=== PATIENT | female | born 1955 | race Caucasian/White ===

== ENCOUNTER 2016-11-13 19:58 | Inpatient (IN) | payer MEDICARE, OTHER ==
[2016-11-13] MEDS ORDERED: IPRATROPIUM/ALBUTEROL 3 ML NEB INH STA (20:23)
[2016-11-13] MEDS ORDERED: predniSONE 20 MG TABLET PO STA (20:24)
--- NOTE | 2016-11-13 20:24 | ED Physician Documentation ---
PD HPI URI - Stated complaint Stated Complaint: SOA - Chief complaint Chief Complaint: Resp - History obtained from History obtained from: Patient, Family - History of Present Illness Timing - onset: How many days ago (4) Timing duration: Days (4) Timing details: Gradual onset Pain level max: 0 Pain level now: 0 Associated symptoms: Chills, Sweats, Rhinorrhea, Dry cough, Dyspnea. No: Fever , Hemoptysis, Chest pain Contributing factors: Sick contact, COPD / asthma Improves by: Rest Worsened by: Activity, Breathing Similar symptoms before: Diagnosis (viral URI) Recently seen: Clinic (PCP and given inhaler, not helping per pt) Review of Systems Ten Systems: 10 systems reviewed and negative Eyes: denies: Photophobia Nose: reports: Rhinorrhea / runny nose, Congestion Respiratory: reports: Cough, Wheezing GI: denies: Nausea, Vomiting PD PAST MEDICAL HISTORY - Past Medical History Past Medical History: Yes Cardiovascular: Hypertension Endocrine/Autoimmune: Type 2 diabetes - Present Medications Home Medications: Ambulatory Orders Medication Instructions Recorded Confirmed Albuterol Sulf [Ventolin Hfa 2 puffs IN Q4HR 11/13/16 11/13/16 Inhaler] Allopurinol [Zyloprim] 300 mg ORAL DAILY 11/13/16 11/13/16 Furosemide 80 mg ORAL DAILY 11/13/16 11/13/16 Hydrocodone/Acetaminophen [[place] 1 tab ORAL PRN PRN 11/13/16 11/13/16 5-325 Tablet] Insulin Glargine,Hum.rec.anlog 0 unit SQ BID 11/13/16 11/13/16 [Lantus Solostar] Lisinopril [Zestril] 40 mg ORAL DAILY 11/13/16 11/13/16 Metoclopramide [Reglan] 10 mg ORAL BID 11/13/16 11/13/16 Omeprazole 40 mg ORAL DAILY 11/13/16 11/13/16 Pioglitazone [Actos] 30 mg ORAL DAILY 11/13/16 11/13/16 Simvastatin 20 mg ORAL DAILY 11/13/16 11/13/16 amLODIPine [Norvasc] 10 mg ORAL BID 11/13/16 11/13/16 metFORMIN [Glucophage] 500 mg ORAL BID 11/13/16 11/13/16 - Allergies Allergies/Adverse Reactions: Allergies Allergy/AdvReac Type Severity Reaction Status Date / Time No Known Drug Allergies Allergy Verified 11/13/16 20:15 - Living Situation Living Situation: reports: With family Living Arrangement: reports: At home - Social History Does the pt smoke?: Yes Smoking Status: Former smoker Does the pt have substance abuse?: No PD ED PE NORMAL - Vitals Vital signs reviewed: Yes - General General: Alert and oriented X 3, No acute distress - HEENT HEENT: PERRL, Ears normal, Moist mucous membranes, Pharynx benign - Neck Neck: Supple, no meningeal sign - Cardiac Cardiac: RRR - Respiratory Respiratory: No respiratory distress, Other (decreased BS bilaterally. mild wheezing) - Abdomen Abdomen: Soft, Non tender - Derm Derm: Warm and dry - Extremities Extremities: No calf tenderness / cord - Neuro Neuro: Alert and oriented X 3 - Psych Psych: Normal mood, Normal affect Results - Vitals Vitals: Vital Signs - 24 hr 11/13/16 11/13/16 11/13/16 20:11 20:30 21:18 Temperature 36.9 C Heart Rate 113 H 112 H 112 H Respiratory 24 22 24 Rate Blood Pressure 121/65 137/56 H O2 Saturation 86 L 93 11/13/16 22:15 Temperature Heart Rate 109 H Respiratory 22 Rate Blood Pressure O2 Saturation Oxygen O2 Source Nasal cannula Oxygen Flow Rate 2 - EKG (time done) 2044 Rate: Rate (enter#) (110) Rhythm: Sinus tachycardia, Other (PAC) [place]: Normal Intervals: Normal VA QRS: Normal Ischemia: Normal ST segments - Labs Labs: Laboratory Tests 11/13/16 11/13/16 20:35 20:35 WBC 13.2 H RBC 3.77 L Hgb 11.1 L Hct 34.5 L MCV 91.5 MCH 29.3 MCHC 32.0 RDW 15.5 H Plt Count 355 MPV 8.2 Neut # Not Reportable Lymph # Not Reportable [place] # Not Reportable Eos # Not Reportable Baso # Not Reportable Absolute Nucleated RBC Not Reportable Total Counted 100 Band Neuts % (Manual) 21 H Neutrophils # (Manual) 9.9 H Lymphocytes # (Manual) 1.5 Monocytes # (Manual) 1.7 H Basophils # (Manual) 0.1 Nucleated RBCs Not Reportable Differential Comment MANUAL DIFFERENTIAL Platelet Estimate NORMAL (130-450,000) Platelet Morphology NORMAL APPEARANCE RBC Morph Micro Appear NORMAL APPEARANCE Sodium 135 Potassium 4.0 Chloride 96 L Carbon Dioxide 28 Anion Gap 11.0 BUN 26 H Creatinine 1.6 H Estimated GFR (MDRD) 33 L Glucose 201 H Calcium 9.4 Total Bilirubin 0.5 AST 23 ALT 18 Alkaline Phosphatase 75 Total Protein 8.1 Albumin 3.5 Globulin 4.6 H Albumin/Globulin Ratio 0.8 L Lipase 21 L - Rads (name of study) cxr Radiology: Prelim report reviewed, EMP read contemporaneously, See rad report ( Mild vascular and interstitial prominence. Very mild asymmetric possible atelectasis or infiltrate within the left mid to upper lung although substantially less opacity than on the comparison exam from 2007. ) PD MEDICAL DECISION MAKING - ED course Complexity details: reviewed results, re-evaluated patient, considered differential, d/w patient, d/w family ED course: Patient is a 61-year-old female with what appears to be a viral upper respiratory infection causing worsening of what is likely COPD from her years of smoking. She was given steroids and multiple nebulizer treatments here. Is continuing to require supplemental oxygen. No evidence of pneumonia on chest x- ray. We will continue supportive care and admit her for supplemental oxygen and further treatment. Discussed the case with Dr. Mena, hospitalist who accepts. This document was made in part using voice recognition software. While efforts are made to proofread this document, sound alike and grammatical errors may occur. Departure - Departure Disposition: 64 [facility] DC/Xfer Clinical Impression: Hypoxia Upper respiratory tract infection Qualifiers: URI type: unspecified viral URI Qualified Code(s): J06.9 - Acute upper respiratory infection, unspecified Condition: Good
[2016-11-13] MEDS ORDERED: IPRATROPIUM/ALBUTEROL 3 ML NEB INH ONE (20:30)
[2016-11-13 20:41] LABS: BASOPHILS % (AUTO) 1.1 %; EOSINOPHILS % (AUTO) 0.3 %; HCT - HEMATOCRIT 34.5 % (37.0-47.0); HGB - HEMOGLOBIN 11.1 g/dL (12.0-16.0); LYMPHOCYTES % (AUTO) 10.4 %; MEAN CORPUSCULAR HEMOGLOBIN 29.3 pg (27.0-31.0); MEAN CORPUSCULAR VOLUME 91.5 fL (81.0-99.0); MEAN PLATELET VOLUME 8.2 fL (7.9-10.8); MONOCYTES % (AUTO) 14.4 %; NEUTROPHILS % (AUTO) 73.8 %; RED BLOOD COUNT 3.77 10^6/uL (4.20-5.40); RED CELL DISTRIBUTION WIDTH 15.5 % (12.0-15.0); UNCORRECTED WHITE BLOOD COUNT 13.2 x10^3/uL; WHITE BLOOD COUNT 13.2 x10^3/uL (4.8-10.8)
[2016-11-13 20:54] LABS: ALBUMIN/GLOBULIN RATIO 0.8 (1.0-2.2); BILIRUBIN,TOTAL 0.5 mg/dL (0.2-1.0); CALCIUM 9.4 mg/dL (8.5-10.3); CREATININE 1.6 mg/dL (0.4-1.0); TOTAL PROTEIN 8.1 g/dL (6.7-8.2)
[2016-11-13 21:01] LABS: BAND NEUTROPHILS % (MANUAL) 21 %; BASOPHILS % (MANUAL) 1 %; LYMPHOCYTES % (MANUAL) 11 %; NEUTROPHILS % (MANUAL) 54 %; TOTAL CELLS COUNTED 100
[2016-11-13 21:03] LABS: NP AUTO DIFFERENTIAL? YES; NP MAN DIFFERENTIAL? NO; PLATELET ESTIMATE, MANUAL NORMAL (130-450,000) (NORMAL); PLATELET MORPHOLOGY NORMAL APPEARANCE (NORMAL)
[2016-11-13] MEDS ORDERED: predniSONE 20 MG TABLET ONE (21:09)
[2016-11-13] MEDS ORDERED: ALBUTEROL NEB 2.5 MG/3 ML INH STA (21:45)
--- NOTE | 2016-11-13 21:50 | XRAY Preliminary Report ---
Exam: XR Chest 1 View IMPRESSION: 1. Mild vascular and interstitial prominence. 2. Very mild asymmetric possible atelectasis or infiltrate within the left mid to upper lung although substantially less opacity than on the comparison exam from 2007. [facility] SITE ID: [id number]
--- NOTE | 2016-11-13 21:53 | XRAY Report ---
EXAM: CHEST RADIOGRAPHY EXAM DATE: 11/13/2016 09:30 PM. CLINICAL HISTORY: Dyspnea. COMPARISON: 2 views 01/29/2007. TECHNIQUE: 1 view. FINDINGS: Lungs/Pleura: Mild diffuse vascular prominence and mild bilateral increased interstitial markings. Po ssible mild asymmetric atelectasis or infiltrate within the left mid to upper lung but substantially less than demonstrated on the prior exam. No definite pulmonary infiltrates or pleural effusion. Mediastinum: Within exam limitations, cardiomediastinal contour is normal. Other: None. IMPRESSION: 1. Mild vascular and interstitial prominence. 2. Very mild asymmetric possible atelectasis or infiltrate within the left mid to upper lung although substantially less opacity than on the comparison exam from 2006. [facility] Referring Provider Line: [phone] SITE ID: [id number]
[2016-11-13] MEDS ORDERED: ALBUTEROL NEB 2.5 MG/3 ML INH ONE (22:19)
[2016-11-13] MEDS ORDERED: HYDROcod/ACETAM 10 MG/325 MG TABLET PO PRN (23:13)
[2016-11-13] MEDS ORDERED: PROCHLORPERAZINE 10 MG/2 ML VIAL IVP PRN (23:13)
[2016-11-13] MEDS ORDERED: ONDANSETRON 4 MG/2 ML VIAL IVP PRN (23:13)
[2016-11-13] MEDS ORDERED: ZOLPIDEM 5 MG TABLET PO PRN (23:13)
[2016-11-13] MEDS ORDERED: MORPHINE 2 MG/ML SYRINGE IVP PRN (23:13)
[2016-11-13] MEDS ORDERED: ACETAMINOPHEN 325 MG TABLET PO PRN (23:13)
[2016-11-13] MEDS ORDERED: HYDROcod/ACETAM 5/325 MG TABLET PO PRN (23:13)
[2016-11-13] MEDS ORDERED: SODIUM CHLORIDE FLUSH 0.9% 10 ML SYRINGE IVP PRN (23:13)
[2016-11-13] MEDS: IPRATROPIUM/ALBUTEROL 3 ML NEB INH SCH (23:45)
[2016-11-14] MEDS ORDERED: CARBOXYMETHYLCELLULOSE OPHTH DROPS EACHEYE PRN ×2 (02:40→05:09)
--- NOTE | 2016-11-14 05:32 | HISTORY & PHYSICAL EXAMINATION ---
Chief Complaint - Chief Complaint Chief Complaint: Shortness of air History of Present Illness - Admitted From Admitted From:: Emergency Department - History Obtained From Records Reviewed: Yes History obtained from: Patient Exam Limitations: None - History of Present Illness HPI Comment/Other: Patient is a 61-year-old female with a past medical history of obesity, hypertension, hyperlipidemia, diabetes, ovarian cancer in remission since 2012 and COPD who presented to the emergency department with a chief complaint of shortness of air. Patient states her symptoms started about 5 days ago she states initially she was having a cough that was dry with shortness of air. She states that initially his shortness of air was only with large amounts of exertion. She states that the symptoms progressed over the last 5 days to a point where today she became short of air with just 10 feet of ambulation. She states that the cough continues to worsen and she also states that she his having upper respiratory symptoms including sore throat and nasal congestion. The patient states that she was around her grandson who was sick just one week earlier. She states that her also became ill with upper respiratory infection but his symptoms were mostly in the throat. The patient recently saw her primary care physician and was prescribed an inhaler she has been taking the inhaler at home despite taking it every 4 hours she states the symptoms were not getting better. On presentation to the emergency department the patient was hypoxemic down to 87 % on room air, she was tachypneic and appeared to be in mild respiratory distress. The patient received 3 breathing treatments and IV steroids in the emergency department and continued to be hypoxemic on room air. The patient's chest x-ray did reveal pneumonia. The patient was tachycardic and had a leukocytosis of 13,000. She was admitted to the hospital for COPD exacerbation and community acquired pneumonia. Review of Systems - Constitutional Constitutional: reports: Fatigue. denies: Fever, Chills, Malaise, Weakness, Poor appetite, Night sweats, Weight loss - Eyes Eyes: denies: Pain, Irritation, Amaurosis, Blurred vision, Spots in vision, Field loss, Vision loss, Dipolpia - Ears, Nose & Throat Ears, Nose & Throat: reports: Nasal congestion, Sore throat. denies: Ear pain, Hearing loss, Hearing aids, Tinnitus, Vertigo, Nasal pain, Nasal discharge, Nosebleeds, Nasal obstruction, Postnasal drainage, Dentures, Hoarseness, Mouth lesions, Bleeding gums - Cardiovascular Cariovascular: reports: Exertional dyspnea, Decr. exercise tolerance. denies: Irregular heart rate, Palpitations, Chest pain, Edema, Lightheadedness, Syncope , Orthopnea - Respiratory Respiratory: reports: Cough, SOB with exertion. denies: Sputum production, Wheezing, Snoring, Hemoptysis, Orthopnea, Apnea - Gastrointestinal Gastrointestinal: denies: Abdominal pain, Abdominal distention, Constipation, Diarrhea, Change in bowel habits, Rectal bleeding, Black stools, Bloody stools, Nausea, Vomiting, Coffee grounds emesis - Genitourinary Genitourinary: denies: Dysuria, Frequency, Urgency, Hematuria - Musculoskeletal Musculoskeletal: denies: Muscle pain, Back pain, Muscle aches, Stiffness, Limited range of motion, Muscle weakness, Joint pain, Joint swelling - Integumentary Integumentary: denies: Rash, Pruritis, Lesions, Dryness - Neurological Neurological: denies: General weakness, Focal weakness, Headache, Dizziness, Numbness, Memory problems - Psychiatric Psychiatric: denies: Depression, Anxiety - Endocrine Endocrine: denies: Polyuria, Polydypsia, Polyphagia, Intolerance to cold - Hematologic/Lymphatic Hematologic/Lymphatic: denies: Anemia, Bruising, Petechiae History - Past Medical History Cardiovascular: reports: Hypertension, High cholesterol Respiratory: reports: COPD Neuro: reports: None Endocrine/Autoimmune: reports: Type 2 diabetes GI: reports: Other (Obesity) [employer]: reports: 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 : reports: None HEENT: reports: None Psych: reports: None Musculoskeletal: reports: Osteoarthritis Derm: reports: None MRSA Hx?: No Other Past Medical History: Gastroparesis - Past Surgical History /[employer]: reports: Hysterectomy HEENT: reports: Other - Family & Social History Family History: Father: Diabetes, Type 2 Family History Comment/Other: Mother had Alzheimer's Living arrangement: At home Living Situation: With spouse/s.o. Social History Notes: Lived in [place] since first grade, born in [place]. Father was in the . She is retired. Has one child. - Substance History Use: Uses substance without health or social issues: Tobacco (Quit 10 years ago smoked 3 PPD for more than 20 years) - POLST Patient has POLST: No POLST Status: Full Code Meds/Allgy - Home Medications Home Medications: Ambulatory Orders Medication Instructions Recorded Confirmed Albuterol Sulf [Ventolin Hfa 2 puffs IN Q4HR 11/13/16 11/13/16 Inhaler] Allopurinol [Zyloprim] 300 mg ORAL DAILY 11/13/16 11/13/16 Furosemide 80 mg ORAL DAILY 11/13/16 11/13/16 Hydrocodone/Acetaminophen [[place] 1 tab ORAL PRN PRN 11/13/16 11/13/16 5-325 Tablet] Insulin Glargine,Hum.rec.anlog 0 unit SQ BID 11/13/16 11/13/16 [Lantus Solostar] Lisinopril [Zestril] 40 mg ORAL DAILY 11/13/16 11/13/16 Metoclopramide [Reglan] 10 mg ORAL BID 11/13/16 11/13/16 Omeprazole 40 mg ORAL DAILY 11/13/16 11/13/16 Pioglitazone [Actos] 30 mg ORAL DAILY 11/13/16 11/13/16 Simvastatin 20 mg ORAL DAILY 11/13/16 11/13/16 amLODIPine [Norvasc] 10 mg ORAL BID 11/13/16 11/13/16 metFORMIN [Glucophage] 500 mg ORAL BID 11/13/16 11/13/16 - Allergies Allergies/Adverse Reactions: Allergies Allergy/AdvReac Type Severity Reaction Status Date / Time No Known Drug Allergies Allergy Verified 11/13/16 20:15 Exam - Vital Signs Vital Signs: Vital Signs x48h Temp Pulse Resp BP Pulse Ox 11/14/16 01:24 114 H 94 11/14/16 01:15 94 11/14/16 00:47 36.9 C 119 H 20 155/79 H 94 - Physical Exam General Appearance: positive: Alert, Mild distress (Coughing with shortness of air) Eyes Bilateral: positive: Normal inspection, PERRL, EOMI, No lid inflammation, Conjunctivae nml, No scleral icterus ENT: positive: ENT inspection nml, No signs of dehydration, Pharyngeal erythema. negative: Purulent nasal drainage, Oral lesions Neck: positive: Nml inspection, Thyroid nml, No JVD, Trachea midline. negative : Thyromegaly, Lymphadenopathy (R), Lymphadenopathy (L) Respiratory: positive: Chest non-tender, Wheezes (scattered), Rhonchi (bilateral , coarse sounding lungs) Cardiovascular: positive: No murmur, No gallop, Tachycardia Peripheral Pulses: positive: 2+ Abdomen: positive: Non-tender, No organomegaly, Nml bowel sounds, No distention. negative: Tenderness, Guarding, Rebound Back: positive: Nml inspection Skin: positive: Color nml, No rash, Warm Extremities: positive: Non-tender, Full ROM, Nml appearance, No pedal edema Neurologic/Psychiatric: positive: Oriented x3, CN's nml (2-12), Motor nml, Sensation nml, Mood/affect nml Conclusion/Plan - Problem List (1) CAP (community acquired pneumonia) Conclusion/Plan: Patient presented with shortness of air and cough worsening over last 5 days with no improvement despite taking nebs every 4 hours at home On presentation patient was hypoxic, tachypnic and tachycardic WBC elevated at 13K CXR showed left mid to upper lung pneumonia Patient also wheezing and appears to also have COPD exacerbation Plan: Treat for CAP with ceftriaxone and Azithromycin Supplemental O2 Treat COPD exacerbation (2) COPD exacerbation Conclusion/Plan: History of smoking 3PPD for over 20 years No previous diagnosis of COPD but was prescribed inhalers by her PCP earlier this week Not improving despite q4 treatments at home Hypoxic on presentation with pneumonia and wheezing Appears to have COPD exacerbation Plan: Duonebs ATC and prn IV steroids TID Supplemental O2 Will need outpatient PFTs and possibly needs ICS and LABA (3) Diabetes Conclusion/Plan: Blood sugar poorly controlled on presentation Likely secondary to infection Will be getting steroids therefore will need additional coverage Plan: Hb A1C Lantus 40 BID Novolog 25 units TIDWM SS insulin moderate scale Diabetic diet (4) Hypertension Conclusion/Plan: BP well controlled Will continue home meds Monitor (5) Hyperlipidemia Conclusion/Plan: Continue statin Stable - Lab Results Fish Bones: 11/13/16 20:35 11/13/16 20:35 - Diagnostic Imaging Results Diagnostic Imaging Results: positive: Final report reviewed Diagnostic Imaging Results Comments: CXR- pneumonia left mid to upper lung - EKG Results EKG Interpreted Independently: Yes Issues/Core Measures - Anticipated LOS Anticipated Stay Length: 2 or more midnights
[2016-11-14 06:21] LABS: BASOPHILS % (AUTO) 0.3 %; HCT - HEMATOCRIT 33.5 % (37.0-47.0); HGB - HEMOGLOBIN 10.8 g/dL (12.0-16.0); LYMPHOCYTES # (AUTO) 0.5 10^3/uL (1.5-3.5); LYMPHOCYTES % (AUTO) 5.4 %; MEAN CORPUSCULAR HEMOGLOBIN 29.7 pg (27.0-31.0); MEAN CORPUSCULAR HGB CONC 32.3 g/dL (32.0-36.0); MEAN CORPUSCULAR VOLUME 92.1 fL (81.0-99.0); MEAN PLATELET VOLUME 8.2 fL (7.9-10.8); MONOCYTES # (AUTO) 0.6 10^3/uL (0.0-1.0); MONOCYTES % (AUTO) 5.6 %; NEUTROPHILS # (AUTO) 8.9 10^3/uL (1.5-6.6); NEUTROPHILS % (AUTO) 88.7 %; RED BLOOD COUNT 3.64 10^6/uL (4.20-5.40); RED CELL DISTRIBUTION WIDTH 15.6 % (12.0-15.0); UNCORRECTED WHITE BLOOD COUNT 10.1 x10^3/uL; WHITE BLOOD COUNT 10.1 x10^3/uL (4.8-10.8)
[2016-11-14 06:30] LABS: CALCIUM 9.2 mg/dL (8.5-10.3); CREATININE 1.7 mg/dL (0.4-1.0); POTASSIUM 5.2 mmol/L (3.5-5.0)
[2016-11-14] MEDS: methylPREDNISolone SUCCINATE 40 MG/ML VIAL IVP SCH ×3 (06:36→21:35)
[2016-11-14] MEDS: SODIUM CHLORIDE 0.9% 1,000 ML IV SCH ×2 (06:36→14:20)
[2016-11-14] MEDS: SODIUM CHLORIDE FLUSH 0.9% 10 ML SYRINGE IVP SCH ×3 (06:37→21:35)
[2016-11-14] MEDS: PANTOPRAZOLE 40 MG TABLET PO SCH (06:37)
[2016-11-14 07:33] LABS: HEMOGLOBIN A1C 0.66 g/dL
[2016-11-14] MEDS ORDERED: INSULIN ASPART 300 UNIT/3 ML PEN SUBQ SCH ×2 (08:00→17:00)
[2016-11-14] MEDS ORDERED: INSULIN GLARGINE 300 UNIT/3 ML PEN SUBQ SCH ×3 (08:00→21:00)
[2016-11-14] MEDS: INSULIN ASPART 300 UNIT/3 ML PEN SUBQ SCH ×6 (08:15→21:39)
[2016-11-14] MEDS: cefTRIAXone 2 GM in SODIUM CHLORIDE 0.9% MINIBAG 100 ML IV SCH (08:18)
[2016-11-14] MEDS: POLYETHYLENE GLYCOL 3350 17 GM PACKET PO SCH (08:20)
[2016-11-14] MEDS: AZITHROMYCIN INJ 500 MG in SODIUM CHLORIDE 0.9% 250 ML IV SCH (08:20)
[2016-11-14] MEDS: ENOXAPARIN 30 MG/0.3 ML SYRINGE SUBQ SCH (08:21)
[2016-11-14] MEDS ORDERED: ALLOPURINOL 100 MG TABLET PO SCH (09:00)
[2016-11-14] MEDS ORDERED: amLODIPine 5 MG TABLET PO SCH (09:00)
[2016-11-14] MEDS: IPRATROPIUM/ALBUTEROL 3 ML NEB INH SCH ×4 (10:40→19:00)
--- NOTE | 2016-11-14 12:06 | PROVIDER PROGRESS NOTE ---
Subjective - Prog Note Date Prog Note Date: 11/14/16 Prog Note Time: 15:55 - Subjective Subjective: tthis 61-year-old female was admitted yesterday with hypoxic respiratory failure, due to pneumonia and COPD exacerbation. she was admitted,, and started on IV Rocephin and Zithromax, a, Solu-Medrol, DuoNeb's. On exam today, she is quite somnolent,, and somewhat difficult to arouse, although she does eventually awaken. She reports she continues to have mild cough and mild dyspnea with exertion , which is minimally productive. Otherwise , she denies subjective fever or chills, headaches or dizziness, sore throat, lymphadenopathy,, chest pain or palpitations, abdominal pain, nausea or vomiting , diarrhea or constipation, dysuria. Objective - Vital Signs/Intake & Output Vital Signs: Vital Signs x48h Temp Pulse Pulse Resp BP Pulse Ox 11/14/16 10:40 112 H 20 11/14/16 07:19 37.0 C 108 H 18 153/78 H 92 11/14/16 06:42 109 H 94 11/14/16 05:32 36.6 C 110 H 20 147/78 H 93 Intake & Output: Intake & Output 11/11/16 11/12/16 11/13/16 11/14/16 23:59 23:59 23:59 23:59 Intake Total 450 Balance 450 on exam, she is an overweight white female,, who is difficult to arouse,, but then became alert and oriented. She is in no acute distress. Neck: Appears supple without obvious lymphadenopathy. Cardiac exam: Shows regular rate and Rhythm with normal S1 and S2. Lungs: Are clear to auscultation, without obvious rales, rhonchi, wheezes. Abdomen: Is obese,, but soft and nontender. Extremities: Show no significant edema, cyanosis, clubbing. - Lab Results Fish Bones: 11/14/16 06:00 11/14/16 06:00 Other Labs: Lab Results x24hrs 11/14/16 11/14/16 11/14/16 Range/Units 06:00 06:00 06:00 WBC 10.1 (4.8-10.8) x10^3/uL RBC 3.64 L (4.20-5.40) 10^6/uL Hgb 10.8 L (12.0-16.0) g/dL Hct 33.5 L (37.0-47.0) % MCV 92.1 (81.0-99.0) fL MCH 29.7 (27.0-31.0) pg MCHC 32.3 (32.0-36.0) g/dL RDW 15.6 H (12.0-15.0) % Plt Count 314 (130-450) 10^3/uL MPV 8.2 (7.9-10.8) fL Neut # 8.9 H (1.5-6.6) 10^3/uL Lymph # 0.5 L (1.5-3.5) 10^3/uL [place] # 0.6 (0.0-1.0) 10^3/uL Eos # 0.0 (0.0-0.7) 10^3/uL Baso # 0.0 (0.0-0.1) 10^3/uL Absolute Nucleated RBC 0.00 x10^3/uL Nucleated RBCs 0.0 /100WBC Sodium 134 L (135-145) mmol/L Potassium 5.2 H (3.5-5.0) mmol/L Chloride 97 L (101-111) mmol/L Carbon Dioxide 27 (21-32) mmol/L Anion Gap 10.0 (6-13) BUN 31 H (6-20) mg/dL Creatinine 1.7 H (0.4-1.0) mg/dL Estimated GFR (MDRD) 30 L (>89) Glucose 397 H (70-100) mg/dL Glycated Hemoglobin 7.5 H (4.6-6.2) % Estim Average Glucose 169 H (70-100) Calcium 9.2 (8.5-10.3) mg/dL Assessment/Plan - Problem List (1) CAP (community acquired pneumonia) Impression: #1. Pulmonary. This patient presents with left mid and upper lobe pneumonia, community acquired. She has been admitted for IV antibiotics, bronchodilators, oxygen. -She does appear somewhat improved today, but does still have significant dyspnea with exertion. -Continue IV ceftriaxone and azithromycin, oxygen, broncho-dilators.next #2. COPD exacerbation,, likely due to greater than [id number] smoking history. the patient is now abstinent from tobacco . -Continue steroids, and other treatments as above. #3. Type II diabetes.Uncontrolled. Continue Lantus and NovoLog,, plus sliding scale. Increase insulin as needed. #4.hypertension. suboptimal control. Continue Lasix, lisinopril, Norvasc. There was some confusion with her home medication list, which was corrected by pharmacy. #5. CODE STATUS: DO NOT RESUSCITATE #6. DVT prophylaxis: Lovenox. this is at approximately 30 minutes today, to review test results, interview and examine her , and write orders.
[2016-11-14] MEDS ORDERED: HYDROcod/ACETAM 5/325 MG TABLET PO PRN (16:29)
[2016-11-14] MEDS ORDERED: FUROSEMIDE 40 MG TABLET PO SCH (16:30)
[2016-11-14] MEDS ORDERED: metFORMIN 500 MG TABLET PO SCH (17:00)
[2016-11-14] MEDS ORDERED: NON FORMULARY MED (Simvastatin [Simvastatin] 20 MG) ORAL SCH (21:00)
[2016-11-14 21:28] LABS: BUN - BLOOD UREA NITROGEN 37 mg/dL (6-20); CALCIUM 9.3 mg/dL (8.5-10.3); CARBON DIOXIDE - CO2 26 mmol/L (21-32); CHLORIDE 99 mmol/L (101-111); CREATININE 1.7 mg/dL (0.4-1.0); GFR - MDRD 30 (>89); GLUCOSE 355 mg/dL (70-100); POTASSIUM 5.1 mmol/L (3.5-5.0); SODIUM 134 mmol/L (135-145)
[2016-11-14] MEDS: METOCLOPRAMIDE 10 MG TABLET PO SCH (21:34)
[2016-11-14] MEDS: ATORVASTATIN 10 MG TABLET PO SCH (21:35)
[2016-11-14] MEDS: INSULIN GLARGINE 300 UNIT/3 ML PEN SUBQ SCH (21:37)
[2016-11-15] MEDS: SODIUM CHLORIDE 0.9% 1,000 ML IV SCH ×4 (00:47→19:01)
[2016-11-15] MEDS: SODIUM CHLORIDE FLUSH 0.9% 10 ML SYRINGE IVP SCH ×3 (05:04→22:24)
[2016-11-15 06:11] LABS: HCT - HEMATOCRIT 34.1 % (37.0-47.0); HGB - HEMOGLOBIN 10.8 g/dL (12.0-16.0); LYMPHOCYTES # (AUTO) 0.9 10^3/uL (1.5-3.5); LYMPHOCYTES % (AUTO) 7.7 %; MEAN CORPUSCULAR HEMOGLOBIN 29.2 pg (27.0-31.0); MEAN CORPUSCULAR HGB CONC 31.8 g/dL (32.0-36.0); MEAN PLATELET VOLUME 8.1 fL (7.9-10.8); MONOCYTES # (AUTO) 0.7 10^3/uL (0.0-1.0); MONOCYTES % (AUTO) 6.2 %; NEUTROPHILS # (AUTO) 9.8 10^3/uL (1.5-6.6); NEUTROPHILS % (AUTO) 86.1 %; RED CELL DISTRIBUTION WIDTH 15.6 % (12.0-15.0); UNCORRECTED WHITE BLOOD COUNT 11.4 x10^3/uL; WHITE BLOOD COUNT 11.4 x10^3/uL (4.8-10.8)
[2016-11-15] MEDS: methylPREDNISolone SUCCINATE 40 MG/ML VIAL IVP SCH ×3 (06:13→22:17)
[2016-11-15] MEDS: PANTOPRAZOLE 40 MG TABLET PO SCH (06:13)
[2016-11-15] MEDS: METOCLOPRAMIDE 10 MG TABLET PO SCH ×3 (06:13→22:18)
[2016-11-15 06:16] LABS: CALCIUM 9.1 mg/dL (8.5-10.3); CREATININE 1.4 mg/dL (0.4-1.0); POTASSIUM 5.2 mmol/L (3.5-5.0)
[2016-11-15 06:45] LABS: PLATELET ESTIMATE, MANUAL NORMAL (130-450,000) (NORMAL); PLATELET MORPHOLOGY NORMAL APPEARANCE (NORMAL); WBC MORPHOLOGY (MULTIPLE) NORMAL APPEARANCE (NORMAL)
[2016-11-15] MEDS ORDERED: INSULIN GLARGINE 300 UNIT/3 ML PEN SUBQ SCH (08:00)
[2016-11-15] MEDS: FUROSEMIDE 40 MG TABLET PO SCH (08:35)
[2016-11-15] MEDS: INSULIN ASPART 300 UNIT/3 ML PEN SUBQ SCH ×7 (08:35→22:08)
[2016-11-15] MEDS: LISINOPRIL 20 MG TABLET PO SCH (08:35)
[2016-11-15] MEDS: ENOXAPARIN 30 MG/0.3 ML SYRINGE SUBQ SCH (08:37)
[2016-11-15] MEDS: NYSTATIN POWDER 15 GM TOP SCH ×2 (08:37→22:09)
[2016-11-15] MEDS: PIOGLITAZONE 15 MG TABLET PO SCH (08:38)
[2016-11-15] MEDS: ALLOPURINOL 100 MG TABLET PO SCH (08:39)
[2016-11-15] MEDS: amLODIPine 5 MG TABLET PO SCH (08:40)
[2016-11-15] MEDS: POLYETHYLENE GLYCOL 3350 17 GM PACKET PO SCH (08:40)
[2016-11-15] MEDS: cefTRIAXone 2 GM in SODIUM CHLORIDE 0.9% MINIBAG 100 ML IV SCH (08:50)
[2016-11-15] MEDS ORDERED: NON FORMULARY MED (Omeprazole [Omeprazole] 40 MG) ORAL SCH (09:00)
[2016-11-15] MEDS ORDERED: DULoxetine 30 MG CAPSULE PO SCH ×2 (09:00)
[2016-11-15] MEDS: AZITHROMYCIN INJ 500 MG in SODIUM CHLORIDE 0.9% 250 ML IV SCH (09:36)
[2016-11-15] MEDS: IPRATROPIUM/ALBUTEROL 3 ML NEB INH PRN ×3 (10:13→20:37)
[2016-11-15] MEDS: DULoxetine 30 MG CAPSULE PO SCH (10:48)
--- NOTE | 2016-11-15 11:20 | PROVIDER PROGRESS NOTE ---
Subjective - Subjective Subjective: 11/14/2016: this 61-year-old female was admitted 11/13/2016 with hypoxic respiratory failure , due to pneumonia and COPD exacerbation. she was admitted,, and started on IV Rocephin and Zithromax, a, Solu-Medrol, DuoNeb's. On exam today, she is quite somnolent,, and somewhat difficult to arouse, although she does eventually awaken. She reports she continues to have mild cough and mild dyspnea with exertion , which is minimally productive. Otherwise , she denies subjective fever or chills, headaches or dizziness, sore throat, lymphadenopathy,, chest pain or palpitations, abdominal pain, nausea or vomiting , diarrhea or constipation, dysuria. 11/15/2016: today, the patient is much more awake and alert. She still has significant dyspnea with walking to and from the bathroom, but otherwise is feeling quite a bit improved. Today, she reports that she does not have a history of underlying lung disease or COPD, to her knowledge. She does not generally require respiratory medications or oxygen at home. She continues to have very thick secretions.cough continues productive of thick yellow phlegm. Otherwise, she denies fever or chills. she denies headaches, or dizziness,, sore throat, chest pain or palpitations, nausea or vomiting, diarrhea or constipation, dysuria. She also denies history of any known previous kidney problems, but did present with abnormal renal function.. Objective - Vital Signs/Intake & Output Vital Signs: Vital Signs x48h Temp Pulse Resp BP Pulse Ox 11/15/16 10:17 114 H 22 11/15/16 09:06 36.9 C 105 H 136/78 H 18 L Intake & Output: Intake & Output 11/12/16 11/13/16 11/14/16 11/15/16 23:59 23:59 23:59 23:59 Intake Total 850 2865 Output Total 1450 Balance 850 1415 on exam, she is sitting up in a chair, and is awake and alert, and much more interactive today. Neck is supple, without obvious lymphadenopathy or JVD. Cardiac exam shows regular rate and rhythm. Lungs: Continued to show diffuse wheezing throughout.no definite rales or rhonchi are noted. There is no accessory muscle use.. Abdomen: Is soft and nontender. Extremities: Show no significant edema. Neurological is grossly nonfocal. - Lab Results Fish Bones: 11/15/16 05:11 11/15/16 05:11 Other Labs: Lab Results x24hrs 11/15/16 11/15/16 11/14/16 Range/Units 05:11 05:11 21:05 WBC 11.4 H (4.8-10.8) x10^3/uL RBC 3.70 L (4.20-5.40) 10^6/uL Hgb 10.8 L (12.0-16.0) g/dL Hct 34.1 L (37.0-47.0) % MCV 92.0 (81.0-99.0) fL MCH 29.2 (27.0-31.0) pg MCHC 31.8 L (32.0-36.0) g/dL RDW 15.6 H (12.0-15.0) % Plt Count 360 (130-450) 10^3/uL MPV 8.1 (7.9-10.8) fL Neut # 9.8 H (1.5-6.6) 10^3/uL Lymph # 0.9 L (1.5-3.5) 10^3/uL [place] # 0.7 (0.0-1.0) 10^3/uL Eos # 0.0 (0.0-0.7) 10^3/uL Baso # 0.0 (0.0-0.1) 10^3/uL Absolute Nucleated RBC 0.00 x10^3/uL Nucleated RBCs 0.0 /100WBC Manual Slide Review Indicated WBC Morphology NORMAL APPEARANCE (NORMAL) Platelet Estimate NORMAL (130-450,000) (NORMAL) Platelet Morphology NORMAL APPEARANCE (NORMAL) RBC Morph Micro Appear NORMAL APPEARANCE (NORMAL) Sodium 137 134 L (135-145) mmol/L Potassium 5.2 H 5.1 H (3.5-5.0) mmol/L Chloride 101 99 L (101-111) mmol/L Carbon Dioxide 27 26 (21-32) mmol/L Anion Gap 9.0 9.0 (6-13) BUN 39 H 37 H (6-20) mg/dL Creatinine 1.4 H 1.7 H (0.4-1.0) mg/dL Estimated GFR (MDRD) 38 L 30 L (>89) Glucose 331 H 355 H (70-100) mg/dL Calcium 9.1 9.3 (8.5-10.3) mg/dL Ionized Calcium NO - Diagnostic Imaging Diagnostic Imaging Comments: chest x-ray from November 13: shows mild vascular and interstitial prominence. Very mild asymmetric possible atelectasis versus infiltrate within the left mid to upper lung, although less when compared to 2007 film. Assessment/Plan - Problem List (1) CAP (community acquired pneumonia) Impression: #1. Pulmonary. This patient presents with left mid and upper lobe pneumonia, community acquired. She has been admitted for IV antibiotics, bronchodilators, oxygen. -She does appear somewhat improved today, but does still have significant dyspnea with exertion. -Continue IV ceftriaxone and azithromycin, oxygen, broncho-dilators. -for her very thick secretions, we will add Mucinex. #2. COPD exacerbation,, likely due to greater than [id number] smoking history. the patient is now abstinent from tobacco . -the patient reports that she has never been diagnosed with COPD, in spite of her smoking history.I suspect she does have underlying lung disease, and should followup with her primary care physician to further discuss this diagnosis. -Continue steroids, and other treatments as above. #3. Type II diabetes.Uncontrolled. Continue Lantus and NovoLog,, plus sliding scale. Increase insulin again. This is likely due to IV steroids. continue by mouth glipizide. -continue statin. -it is not clear why she is on also on aspirin. #4.hypertension. suboptimal control. Continue Lasix, lisinopril, Norvasc. There was some confusion with her home medication list, which was corrected by pharmacy. -I am keeping her on a lower dose of Lasix, given possible dehydration. However this may be allowing her blood pressure to be less well controlled. #5. CODE STATUS: DO NOT RESUSCITATE #6. DVT prophylaxis: Lovenox. #7. Possibly acute renal dysfunction.. Creatinine is gradually improving.she may still be a bit dry. Continue IV fluids. lisinopril was resumed, and I suspect she needs to stay on this for both hypertension and renal protection, regarding diabetes. Continue to follow creatinine. this visit took approximately 30 minutes today, to review test results, interview and examine her , and write orders.
[2016-11-15] MEDS: INSULIN GLARGINE 300 UNIT/3 ML PEN SUBQ SCH (22:04)
[2016-11-15] MEDS: ATORVASTATIN 10 MG TABLET PO SCH (22:10)
[2016-11-15] MEDS: guaiFENesin 600 MG TABLET PO SCH (22:10)
[2016-11-16] MEDS: METOCLOPRAMIDE 10 MG TABLET PO SCH ×3 (06:05→22:03)
[2016-11-16] MEDS: PANTOPRAZOLE 40 MG TABLET PO SCH (06:05)
[2016-11-16] MEDS: methylPREDNISolone SUCCINATE 40 MG/ML VIAL IVP SCH ×3 (06:05→22:05)
[2016-11-16] MEDS: SODIUM CHLORIDE FLUSH 0.9% 10 ML SYRINGE IVP SCH ×3 (06:06→22:06)
[2016-11-16] MEDS: SODIUM CHLORIDE 0.9% 1,000 ML IV SCH ×3 (06:06→23:01)
[2016-11-16 06:15] LABS: BASOPHILS % (AUTO) 0.3 %; HGB - HEMOGLOBIN 10.9 g/dL (12.0-16.0); LYMPHOCYTES # (AUTO) 1.2 10^3/uL (1.5-3.5); LYMPHOCYTES % (AUTO) 8.7 %; MEAN CORPUSCULAR HEMOGLOBIN 28.8 pg (27.0-31.0); MEAN CORPUSCULAR HGB CONC 31.2 g/dL (32.0-36.0); MEAN CORPUSCULAR VOLUME 92.1 fL (81.0-99.0); MEAN PLATELET VOLUME 7.6 fL (7.9-10.8); MONOCYTES # (AUTO) 0.8 10^3/uL (0.0-1.0); MONOCYTES % (AUTO) 5.9 %; NEUTROPHILS # (AUTO) 11.4 10^3/uL (1.5-6.6); NEUTROPHILS % (AUTO) 85.1 %; NUCLEATED RED BLOOD CELLS AUTO 0.1 /100WBC; RED CELL DISTRIBUTION WIDTH 15.7 % (12.0-15.0); UNCORRECTED WHITE BLOOD COUNT 13.4 x10^3/uL; WHITE BLOOD COUNT 13.4 x10^3/uL (4.8-10.8)
[2016-11-16 06:27] LABS: CALCIUM 9.1 mg/dL (8.5-10.3); CREATININE 1.2 mg/dL (0.4-1.0); POTASSIUM 4.7 mmol/L (3.5-5.0)
[2016-11-16 06:43] LABS: PLATELET ESTIMATE, MANUAL NORMAL (130-450,000) (NORMAL); PLATELET MORPHOLOGY NORMAL APPEARANCE (NORMAL)
[2016-11-16] MEDS: IPRATROPIUM/ALBUTEROL 3 ML NEB INH PRN ×3 (08:23→20:26)
[2016-11-16] MEDS ORDERED: DOCUSATE SODIUM 250 MG CAPSULE PO ONE (08:30)
[2016-11-16] MEDS ORDERED: SENNA 8.6 MG TABLET PO ONE (08:30)
[2016-11-16] MEDS: INSULIN GLARGINE 300 UNIT/3 ML PEN SUBQ SCH (08:46)
[2016-11-16] MEDS: NYSTATIN POWDER 15 GM TOP SCH ×2 (08:46→22:06)
[2016-11-16] MEDS: INSULIN ASPART 300 UNIT/3 ML PEN SUBQ SCH ×7 (08:47→22:04)
[2016-11-16] MEDS: POLYETHYLENE GLYCOL 3350 17 GM PACKET PO SCH (08:49)
[2016-11-16] MEDS: guaiFENesin 600 MG TABLET PO SCH ×2 (08:50→22:03)
[2016-11-16] MEDS: DULoxetine 30 MG CAPSULE PO SCH (08:51)
[2016-11-16] MEDS: amLODIPine 5 MG TABLET PO SCH (08:51)
[2016-11-16] MEDS: ALLOPURINOL 100 MG TABLET PO SCH (08:51)
[2016-11-16] MEDS: LISINOPRIL 20 MG TABLET PO SCH (08:51)
[2016-11-16] MEDS: PIOGLITAZONE 15 MG TABLET PO SCH (08:51)
[2016-11-16] MEDS: cefTRIAXone 2 GM in SODIUM CHLORIDE 0.9% MINIBAG 100 ML IV SCH (09:15)
[2016-11-16] MEDS: ENOXAPARIN 30 MG/0.3 ML SYRINGE SUBQ SCH (09:15)
[2016-11-16] MEDS: FUROSEMIDE 40 MG TABLET PO SCH (10:22)
[2016-11-16] MEDS: AZITHROMYCIN INJ 500 MG in SODIUM CHLORIDE 0.9% 250 ML IV SCH (10:22)
--- NOTE | 2016-11-16 11:15 | PROVIDER PROGRESS NOTE ---
Subjective - Prog Note Date Prog Note Date: 11/16/16 - Subjective Subjective: 11/14/2016: this 61-year-old female was admitted 11/13/2016 with hypoxic respiratory failure , due to pneumonia and COPD exacerbation. she was admitted,, and started on IV Rocephin and Zithromax, a, Solu-Medrol, DuoNeb's. On exam today, she is quite somnolent,, and somewhat difficult to arouse, although she does eventually awaken. She reports she continues to have mild cough and mild dyspnea with exertion , which is minimally productive. Otherwise , she denies subjective fever or chills, headaches or dizziness, sore throat, lymphadenopathy,, chest pain or palpitations, abdominal pain, nausea or vomiting , diarrhea or constipation, dysuria. 11/15/2016: today, the patient is much more awake and alert. She still has significant dyspnea with walking to and from the bathroom, but otherwise is feeling quite a bit improved. Today, she reports that she does not have a history of underlying lung disease or COPD, to her knowledge. She does not generally require respiratory medications or oxygen at home. She continues to have very thick secretions.cough continues productive of thick yellow phlegm. Otherwise, she denies fever or chills. she denies headaches, or dizziness,, sore throat, chest pain or palpitations, nausea or vomiting, diarrhea or constipation, dysuria. She also denies history of any known previous kidney problems, but did present with abnormal renal function.. November 16, 2016: today, the patient notes she is feeling much better. She is oxygenating well on room air. sshe does desaturate mildly, with ambulation, but is much improved yesterday.she notes that her cough is increasingly productive , and feels that she is clearing her lungs better Otherwise, she denies fever or chills, chest pain or palpitations, GI or symptoms. She is a little nervous about ambulating without oxygen, but is willing to be discharged home sooner, if she can have treatments at [facility]. Objective - Vital Signs/Intake & Output Reviewed Vital Signs: Yes Vital Signs: Vital Signs Temp Pulse Pulse Resp BP Pulse Ox 11/16/16 09:16 36.5 C 101 H 16 154/71 H 98 11/16/16 08:38 110 H 20 Intake & Output: Intake & Output 11/13/16 11/14/16 11/15/16 11/16/16 23:59 23:59 23:59 23:59 Intake Total 850 4065 749 Output Total 2650 750 Balance 850 1415 -1 oon exam, she is looking much brighter and much more comfortable. She is sitting in a chair, without oxygen. Breathing is nonlabored. Neck is supple, without lymphadenopathy or JVD. Cardiac exam shows regular rate and rhythm. Lung exam: Shows very soft wheezes,, mainly at the bases, and clear above. There is no accessory muscle use. Abdomen is soft and nontender. extremities show no edema. Neurologic exam is nonfocal. - Lab Results Fish Bones: 11/16/16 05:41 11/16/16 05:41 Other Labs: Lab Results x24hrs 11/16/16 11/16/16 Range/Units 05:41 05:41 WBC 13.4 H (4.8-10.8) x10^3/uL RBC 3.80 L (4.20-5.40) 10^6/uL Hgb 10.9 L (12.0-16.0) g/dL Hct 35.0 L (37.0-47.0) % MCV 92.1 (81.0-99.0) fL MCH 28.8 (27.0-31.0) pg MCHC 31.2 L (32.0-36.0) g/dL RDW 15.7 H (12.0-15.0) % Plt Count 387 (130-450) 10^3/uL MPV 7.6 L (7.9-10.8) fL Neut # 11.4 H (1.5-6.6) 10^3/uL Lymph # 1.2 L (1.5-3.5) 10^3/uL [place] # 0.8 (0.0-1.0) 10^3/uL Eos # 0.0 (0.0-0.7) 10^3/uL Baso # 0.0 (0.0-0.1) 10^3/uL Absolute Nucleated RBC 0.02 x10^3/uL Nucleated RBCs 0.1 /100WBC Manual Slide Review Indicated Platelet Estimate NORMAL (130-450,000) (NORMAL) Platelet Morphology NORMAL APPEARANCE (NORMAL) RBC Morph Micro Appear NORMAL APPEARANCE (NORMAL) Sodium 139 (135-145) mmol/L Potassium 4.7 (3.5-5.0) mmol/L Chloride 102 (101-111) mmol/L Carbon Dioxide 26 (21-32) mmol/L Anion Gap 11.0 (6-13) BUN 39 H (6-20) mg/dL Creatinine 1.2 H (0.4-1.0) mg/dL Estimated GFR (MDRD) 45 L (>89) Glucose 269 H (70-100) mg/dL Calcium 9.1 (8.5-10.3) mg/dL chest x-ray from November 13: shows mild vascular and interstitial prominence. Very mild asymmetric possible atelectasis versus infiltrate within the left mid to upper lung, although less when compared to 2007 film. EKG from November 13: Shows sinus tachycardia at a rate of 110,, with low voltage, and occasional PAC. Assessment/Plan - Problem List (4) Hypertension Impression: #1. Pulmonary. This patient presents with left mid and upper lobe pneumonia, community acquired. She has been admitted for IV antibiotics, bronchodilators, oxygen. -She does appear markedly improved today, but does still have moderate dyspnea with exertion. -Continue IV ceftriaxone and azithromycin, oxygen, broncho-dilators today. If she looks this good or better ttomorrow, plan on discharging her to home. Respiratory therapy is recommending home nebulizer treatmen. We will also check oxygen with am, to decide about home oxygen needs.. -for her very thick secretions, Mucinex was added, and seems to be helping. #2. COPD exacerbation,, likely due to greater than [id number] smoking history. the patient is now abstinent from tobacco . -the patient reports that she has never been diagnosed with COPD, in spite of her smoking history.I suspect she does have underlying lung disease, and should followup with her primary care physician to further discuss this diagnosis. -sstart to wean steroids, and other treatments as above. #3. Type II diabetes.Uncontrolled. Continue Lantus and NovoLog,, plus sliding scale. Increase insulin again. This is likely due to IV steroids. continue by mouth glipizide. -continue statin. -it is not clear why she is not on also on aspirin. #4.hypertension. suboptimal control. Continue Lasix, lisinopril, Norvasc. There was some confusion with her home medication list, which was corrected by pharmacy. -I am keeping her on a lower dose of Lasix, given possible dehydration. However this may be allowing her blood pressure to be less well controlled. #5. CODE STATUS: DO NOT RESUSCITATE #6. DVT prophylaxis: Lovenox. #7. Possibly acute renal dysfunction.. Creatinine is gradually improving.she may still be a bit dry. rresume IV fluids overnight. lisinopril was resumed, and I suspect she needs to stay on this for both hypertension and renal protection, regarding diabetes. Continue to follow creatinine. this visit took approximately 30 minutes today, to review test results, interview and examine her ,review plan of care with nursing and respiratory therapy, and write orders.
--- NOTE | 2016-11-16 17:26 | Discharge Plan ---
Discharge Plan Disposition: Home, Self Care Condition: Good Prescriptions: Amox/Clav 875/125 [Augmentin] 1 each PO Q12H #10 tablet Furosemide 80 mg PO DAILY #1 tablet guaiFENesin [Mucinex] 600 mg PO BID #20 tablet Diet: Diabetic Activity Restrictions: Activity as Tolerated Shower Restrictions: No Driving Restrictions: No Assistance Devices: Other (home nebulizer machine for duoneb use) Weight Bearing: Full Weight Additional Instructions or Follow Up instructions: #1. Pneumonia. -Complete antibiotics as prescribed. -please continue duo nebs nebulizer treatments 3-4 times a day until your reading is completely back to normal.after this, you can use nebulizers just as needed for shortness of breath or wheezing.. -you will be started on oral prednisone. Start with 40 mg a day for 2 days, then go to 30 mg a day for 2 days,, then 20 mg a day for 2 days, then 10 mg a day. Please review this regimen when you see your primary care physician in followup. Hopefully you can then stop this altogether. -you were also given a prescription for Mucinex, to help thin out her secretions, so you can cough them up. #2. COPD. You appear to have developed COPD, likely due 2 your history of smoking. he may need to use inhalers or nebulizers every day,, from now on. You. may want to have your physician refer you to see a lung specialist at least once. #3. Type II diabetes. Your glucose is has been running very high since we started the steroids. He may need to take extra mealtime insulin to keep your blood sugar between 120 and 180, until you are off of the steroids. You can probably cut the lantus down to 50 units twice a day today. u. can resume your metformin, but please be sure to stay well-hydrated while taking this medication.. Stop it if you become dehydrated for ny reason.. Push fluids! #4. Hypertension. -I have decreased your Lasix to 80 mg, 2 tabs a day.. #5. Kidney dysfunction. Please have your doctor recheck blood work for kidney function when you see him for followup. Dehydration, metformin, lisinopril, and other medications may have contributed to this dysfunction. If this continues, your doctor may need to cut down the dose of some of your medications, such as metformin,, pioglitazone, and duloxetine.. #6. Obesity. Regular exercise can help with weight, as well as improve your lung stamina, and lower your blood glucoses. No Smoking: If you smoke, Please STOP! Call for help. Follow-up with: Keaton Morales MD [Primary Care Provider] -
[2016-11-16] MEDS: SODIUM CHLORIDE 0.45% 1,000 ML IV SCH (18:41)
[2016-11-16] MEDS ORDERED: INSULIN GLARGINE 300 UNIT/3 ML PEN SUBQ SCH (21:00)
[2016-11-16] MEDS: ATORVASTATIN 10 MG TABLET PO SCH (22:03)
[2016-11-17] MEDS: SODIUM CHLORIDE 0.45% 1,000 ML IV SCH (00:32)
[2016-11-17] MEDS: METOCLOPRAMIDE 10 MG TABLET PO SCH (06:19)
[2016-11-17] MEDS: SODIUM CHLORIDE FLUSH 0.9% 10 ML SYRINGE IVP SCH (06:23)
[2016-11-17] MEDS: PANTOPRAZOLE 40 MG TABLET PO SCH (06:27)
[2016-11-17 08:19] VITALS: BP 154/71
[2016-11-17] MEDS: amLODIPine 5 MG TABLET PO SCH (08:20)
[2016-11-17] MEDS: FUROSEMIDE 40 MG TABLET PO SCH (08:22)
[2016-11-17] MEDS: guaiFENesin 600 MG TABLET PO SCH (08:23)
[2016-11-17] MEDS: ALLOPURINOL 100 MG TABLET PO SCH (08:23)
[2016-11-17] MEDS: LISINOPRIL 20 MG TABLET PO SCH (08:23)
[2016-11-17] MEDS: PIOGLITAZONE 15 MG TABLET PO SCH (08:23)
[2016-11-17] MEDS: DULoxetine 30 MG CAPSULE PO SCH (08:23)
[2016-11-17] MEDS: POLYETHYLENE GLYCOL 3350 17 GM PACKET PO SCH (08:24)
[2016-11-17] MEDS: ENOXAPARIN 30 MG/0.3 ML SYRINGE SUBQ SCH (08:24)
[2016-11-17] MEDS: methylPREDNISolone SUCCINATE 40 MG/ML VIAL IVP SCH (08:24)
[2016-11-17] MEDS: AZITHROMYCIN INJ 500 MG in SODIUM CHLORIDE 0.9% 250 ML IV SCH (08:27)
[2016-11-17] MEDS: cefTRIAXone 2 GM in SODIUM CHLORIDE 0.9% MINIBAG 100 ML IV SCH (08:27)
[2016-11-17] MEDS: INSULIN ASPART 300 UNIT/3 ML PEN SUBQ SCH ×4 (09:25→12:07)
[2016-11-17] MEDS: INSULIN GLARGINE 300 UNIT/3 ML PEN SUBQ SCH (09:25)
[2016-11-17] MEDS: NYSTATIN POWDER 15 GM TOP SCH (09:25)
--- NOTE | 2016-11-17 12:53 | Discharge Plan ---
Discharge Plan Disposition: Home, Self Care Condition: Good Prescriptions: Amox/Clav 875/125 [Augmentin] 1 each PO Q12H #10 tablet Furosemide 80 mg PO DAILY #1 tablet guaiFENesin [Mucinex] 600 mg PO BID #20 tablet Nystatin 1 each TOP TID #1 powder.ea. Prednisone 10 mg PO [id number] #20 tablet Activity Restrictions: Activity as Tolerated Shower Restrictions: No Driving Restrictions: No Weight Bearing: Full Weight Instruction Topics: Amoxicillin Clavulanic Acid tablets, Kidney Function, COPD Dc, Pneumonia Dc, Nebulizer Use, Nebulizer Steps Additional Instructions or Follow Up instructions: #1. Pneumonia. -Complete antibiotics as prescribed. -please continue duo nebs nebulizer treatments 3-4 times a day until your reading is completely back to normal.after this, you can use nebulizers just as needed for shortness of breath or wheezing.. -you will be started on oral prednisone. Start with 40 mg a day for 2 days, then go to 30 mg a day for 2 days,, then 20 mg a day for 2 days, then 10 mg a day. Please review this regimen when you see your primary care physician in followup. Hopefully you can then stop this altogether. -you were also given a prescription for Mucinex, to help thin out her secretions, so you can cough them up. #2. COPD. You appear to have developed COPD, likely due 2 your history of smoking. he may need to use inhalers or nebulizers every day,, from now on. You. may want to have your physician refer you to see a lung specialist at least once. #3. Type II diabetes. Your glucose is has been running very high since we started the steroids. He may need to take extra mealtime insulin to keep your blood sugar between 120 and 180, until you are off of the steroids. You can probably cut the lantus down to 50 units twice a day today. u. can resume your metformin, but please be sure to stay well-hydrated while taking this medication.. Stop it if you become dehydrated for ny reason.. Push fluids! #4. Hypertension. -I have decreased your Lasix to 80 mg, 2 tabs a day.. #5. Kidney dysfunction. Please have your doctor recheck blood work for kidney function when you see him for followup. Dehydration, metformin, lisinopril, and other medications may have contributed to this dysfunction. If this continues, your doctor may need to cut down the dose of some of your medications, such as metformin,, pioglitazone, and duloxetine.. #6. Obesity. Regular exercise can help with weight, as well as improve your lung stamina, and lower your blood glucoses. No Smoking: If you smoke, Please STOP! Call for help. Follow-up with: Keaton Morales MD [Primary Care Provider] -
--- NOTE | 2016-11-18 07:17 | DISCHARGE SUMMARY ---
DATE OF ADMISSION: 11/13/2016 DATE OF DISCHARGE: 11/17/2016 DISCHARGE DIAGNOSES 1. Community acquired pneumonia associated with hypoxia, and chest x-ray showing left mid to upper lo be lung pneumonia. 2. Chronic obstructive pulmonary disease exacerbation. 3. Type 2 diabetes disease with exacerbation due to steroids. 4. Hypertension. 5. Hyperlipidemia. 6. Obesity. 7. Acute renal dysfunction, improved. HOSPITAL COURSE: This 61-year-old female has a history of obesity, diabetes, and ovarian cancer, but claims that she was unaware of a COPD diagnosis. She does have a past history of smoking. She present ed to the emergency room complaining of shortness of breath and cough. In the ER, she was hypoxic wit h O2 saturations in the mid 80s and tachypneic. She did not turn around immediately with emergency ro om treatment. She was admitted and treated for community-acquired pneumonia, with presumed COPD and C OPD exacerbation. She has responded nicely to IV ceftriaxone and azithromycin, with frequent nebulize r treatments. She required fairly high flow oxygen for the first couple of days, but is back to zen l O2 saturations on room air today. She will be discharged to home and will be sent home with a nebul izer and DuoNebs. She is advised to use DuoNebs at least t.i.d. until breathing is completely normal, and then she can taper back to p.r.n. use. She will be changed over to oral Augmentin to complete he r antibiotic course. She almost certainly does have COPD given her significant smoking history. She is advised to review t his and recommended treatments with her primary care physician or seek consultation with a orientation and mobility specialist. For her diabetes, blood sugars ran quite high with glucoses over 300 while she was here and on steroi ds. We did increase her Lantus to 60 units b.i.d. and had her on a high dose sliding scale. She shoul d be able to resume her home medications today and gradually wean the Lantus back down to 40 units b. i.d. She will be on a prednisone taper, and as this comes down, hopefully her control will improve. Blood pressures remained fairly well controlled during her stay. We did continue her statin for her h yperlipidemia. For her very thick secretions, Mucinex was added to her regimen and did seem to help quite a bit. CODE STATUS WAS DNR. Acute renal failure. BUN and creatinine were elevated to 31 and 1.7, but as of yesterday, have improv ed to 39 and 1.2. She may have some underlying chronic renal dysfunction, but she reports she is unaw are of that. She is encouraged to discuss that with her primary care physician as well. We did contin ue her lisinopril, as I think she needs to be on that chronically, regarding her diabetes. PHYSICAL EXAMINATION GENERAL: On exam today, she is in good spirits and says she is feeling much better. She has only mini mal shortness of breath with exertion. Respiratory Therapy did walk with her today and she did not dr op her O2 saturations below 88% with walking, although she did not walk very far due to her chronic p ain. She is in no acute distress. NECK: Supple, without lymphadenopathy or JVD. CARDIOVASCULAR: Shows a regular rate and rhythm. LUNGS: Shows scattered wheezes, but good air movement. There is no accessory muscle use. ABDOMEN: Soft and nontender. EXTREMITIES: Show no edema. DIAGNOSTIC STUDIES: White blood cell count varied between 10 and 13,000, and hemoglobin today is 10.9 with hematocrit of 35. Neutrophil count remains mildly elevated at 11,000, possibly due to steroids. Chemistry panel is notable for a BUN of 39 with creatinine of 1.2, glucose this morning was 269. No cultures were reported. Chest x-ray from 11/13 showed mild vascular and interstitial prominence and mild symmetric possible a telectasis versus infiltrate. EKG from 11/13 showed sinus tachycardia at a rate of 110, with low volt age. DISCHARGE MEDICATIONS Include 1. Augmentin 875/125 one p.o. q.12h. for another 5 days. 2. DuoNebs per nebulizer t.i.d. and p.r.n. 3. Pioglitazone 30 mg every day. 4. Albuterol inhaler p.r.n. 5. Lasix 80 mg every day. 6. NovoLog 25 units with meals t.i.d. 7. Cymbalta 60 mg every day. 8. [place] 5/325 t.i.d. p.r.n. 9. Reglan 10 mg t.i.d. 10. Lantus starting with 60 units b.i.d. and to taper back down to 40 units b.i.d. as per Accu-Cheks. 11. Allopurinol 300 mg every day. 12. Zocor 20 mg q.p.m. 13. Lisinopril 40 mg every day. 14. Metformin 500 mg b.i.d. 15. Amlodipine 10 mg daily. 16. Omeprazole 40 mg every day. 17. Guaifenesin 600 mg p.o. b.i.d. 18. Prednisone, to start with 40 mg every day and decrease by 10 mg every 2 days. 19. Nystatin powder topically t.i.d. p.r.n. candidal rash. 20. Tylenol 650 mg q.4h. p.r.n. This visit took approximately 40 minutes today to review her test results, interview and examine her, review plan of care with the patient, as well as with respiratory therapy and other staff, and write discharge orders. JOB #: [id number] EXT JOB #:[id number]
== END 2016-11-17 13:30 | disposition home or self-care (01) | DRG 190 ==
LOC: ED 19:58 → MS 23:13
PROVIDERS: ADMIT Internal Medicine; ATTEND Internal Medicine
DX: J44.0 Chronic obstructive pulmonary disease with (acute) lower respiratory infection (principal); R09.02 Hypoxemia; J06.9 Acute upper respiratory infection, unspecified; J44.9 Chronic obstructive pulmonary disease, unspecified; E11.9 Type 2 diabetes mellitus without complications; J18.9 Pneumonia, unspecified organism; J96.91 Respiratory failure, unspecified with hypoxia; N17.9 Acute kidney failure, unspecified; Z68.43 Body mass index [BMI] 50.0-59.9, adult; J44.1 Chronic obstructive pulmonary disease with (acute) exacerbation; I10 Essential (primary) hypertension; E78.5 Hyperlipidemia, unspecified; E66.9 Obesity, unspecified; E11.65 Type 2 diabetes mellitus with hyperglycemia; M19.90 Unspecified osteoarthritis, unspecified site; G89.29 Other chronic pain; Z85.43 Personal history of malignant neoplasm of ovary; Z87.891 Personal history of nicotine dependence; Z79.4 Long term (current) use of insulin
CPT/HCPCS: 36415; 71010; 80048; 80053; 83036; 83690; 85025; 93005; 93010; 94640; 94761; 99284; 99285

== ENCOUNTER 2017-08-13 06:04 | Day surgery (SDC) | payer MEDICARE ==
[2017-08-13] MEDS ORDERED: KETOROLAC 0.45% OPHTH DROPS ONE (06:24)
[2017-08-13] MEDS ORDERED: PROPARACAINE 0.5% OPHTH DROPS 15 ML ONE ×2 (06:24→07:16)
[2017-08-13] MEDS ORDERED: CYCLOPENTOLATE 1% OPHTH DROPS 2 ML ONE (06:25)
[2017-08-13] MEDS ORDERED: PHENYLEPHRINE 2.5% OPHTH 2 ML DROPS ONE (06:26)
[2017-08-13] MEDS ORDERED: KETOROLAC 0.45% OPHTH DROPS RIGHTEYE ONE (06:39)
[2017-08-13] MEDS ORDERED: PHENYLEPHRINE 2.5% OPHTH 2 ML DROPS RIGHTEYE ONE (06:39)
[2017-08-13] MEDS ORDERED: PROPARACAINE 0.5% OPHTH DROPS 15 ML RIGHTEYE ONE ×2 (06:39→07:48)
[2017-08-13] MEDS ORDERED: CYCLOPENTOLATE 1% OPHTH DROPS 2 ML RIGHTEYE ONE (06:39)
[2017-08-13] MEDS ORDERED: LACTATED RINGERS 500 ML IV ONE (06:43)
[2017-08-13] MEDS ORDERED: BRIMONIDINE 0.2% OPHTH DROPS 5 ML ONE (07:15)
[2017-08-13] MEDS ORDERED: TIMOLOL 0.5% OPHTH DROPS ONE (07:16)
[2017-08-13] MEDS ORDERED: MIDAZOLAM 2 MG/2 ML VIAL IVP ONE (07:41)
[2017-08-13] MEDS ORDERED: TRIAMCIN/MOXIFLOX/VANCO 1 ML VIAL IO ONE (07:48)
[2017-08-13] MEDS ORDERED: TIMOLOL 0.5% OPHTH DROPS OPTH ONE (07:48)
[2017-08-13] MEDS ORDERED: EPINEPHrine 1 MG/ML AMP IVP ONE (07:48)
[2017-08-13] MEDS ORDERED: BSS/LIDOCAINE/EPINEPHRINE 1 ML SYRINGE IO ONE (07:48)
[2017-08-13] MEDS ORDERED: CHONDR SULF/HYALURONATE SYRINGE IO ONE (07:48)
[2017-08-13] MEDS ORDERED: BRIMONIDINE 0.2% OPHTH DROPS 5 ML OPTH ONE (07:48)
[2017-08-13 07:58] VITALS: BP 140/61
--- NOTE | 2017-08-13 08:21 | OPERATIVE REPORT ---
DATE OF SERVICE: 08/13/2017 Physician: William Mccann MD DATE OF SURGERY: 08/13/2017 PREOPERATIVE DIAGNOSIS: Visually significant cataract, right eye. This was her first cataract surgery. POSTOPERATIVE DIAGNOSIS: Visually significant cataract, right eye. This was her first cataract surgery. NAME OF PROCEDURE: Phacoemulsification with posterior chamber intraocular lens implant, right eye. SURGEON: William Mccann MD ANESTHESIA: Monitored anesthesia care. COMPLICATIONS: None. OPERATIVE INDICATIONS: This is a 62-year-old woman with progressive vision loss in the right eye due to 3+ nuclear sclerotic, 1+ cortical cataract. Best corrected visual acuity was 20/40 with glare to 20/400 in the right eye. INDICATIONS FOR SURGERY: Overall decrease in vision; difficulty seeing words, closed captions, or game scores on TV; difficulty seeing street signs, difficulty driving in low light or at night, difficulty driving at night because of the headlight from other vehicles , and difficulty with glare and bright lights in any situation. She was consented at length concerning risks and benefits of cataract surgery, after which she expressed a desire to proceed with surgery. OPERATIVE PROCEDURE: The patient was taken into OR #3 and placed under monitored anesthesia care. A surgical timeout was conducted confirming correct patient, correct procedure and correct surgical site. She was given topical anesthesia, and prepped and draped in usual sterile fashion. The eye was entered at the 12 and 9 o'clock positions. Intracameral Shugarcaine was injected into the anterior chamber, followed by Viscoat. A continuous-tear curvilinear capsulorrhexis was performed. The nucleus was hydrodissected and phacoemulsified. The cortex was evacuated using automated infusion and aspiration (I&A). Provisc was injected in the capsular bag, and a 19.0 diopter intraocular lens was inserted in the bag. Approximately 0.7 mL of a mixture of triamcinolone, moxifloxacin, and Vancomycin was injected subconjunctivally in the superior quadrant for infection and inflammation prophylaxis. I&A was used to evacuate the viscoelastic material. The eye was inflated to physiologic pressure using a balanced salt solution and found to be watertight. The patient was taken from the operating room in good condition and given postoperative instructions. TD: 08/13/2017 08:20 [facility]
== END 2017-08-13 06:05 | disposition home or self-care (01) ==
LOC: SDS 06:04
PROVIDERS: ATTEND Ophthalmology
PROC: 08RJ3JZ Replacement of Right Lens with Synthetic Substitute, Percutaneous Approach (ICD-10-PCS; principal; 2017-08-13 07:30)
DX: H25.811 Combined forms of age-related cataract, right eye (principal); I10 Essential (primary) hypertension; J44.9 Chronic obstructive pulmonary disease, unspecified; E11.9 Type 2 diabetes mellitus without complications; Z79.4 Long term (current) use of insulin; Z79.84 Long term (current) use of oral hypoglycemic drugs
CPT/HCPCS: 66984; A9270; J3490; V2632

== ENCOUNTER 2017-08-27 08:11 | Day surgery (SDC) | payer MEDICARE ==
[~2017-08-27 08:11] MED LIST: CYCLOPENTOLATE 1% OPHTH DROPS 2 ML ONE; KETOROLAC 0.45% OPHTH DROPS ONE; PHENYLEPHRINE 2.5% OPHTH 2 ML DROPS ONE; PROPARACAINE 0.5% OPHTH DROPS 15 ML ONE
[2017-08-27] MEDS ORDERED: LACTATED RINGERS 500 ML IV ONE (08:21)
[2017-08-27] MEDS ORDERED: KETOROLAC 0.45% OPHTH DROPS LEFTEYE ONE (08:50)
[2017-08-27] MEDS ORDERED: CYCLOPENTOLATE 1% OPHTH DROPS 2 ML LEFTEYE ONE (08:50)
[2017-08-27] MEDS ORDERED: PHENYLEPHRINE 2.5% OPHTH 2 ML DROPS LEFTEYE ONE (08:50)
[2017-08-27] MEDS ORDERED: PROPARACAINE 0.5% OPHTH DROPS 15 ML LEFTEYE ONE ×2 (08:50→09:47)
[2017-08-27] MEDS ORDERED: BRIMONIDINE 0.2% OPHTH DROPS 5 ML OPTH ONE (09:45)
[2017-08-27] MEDS ORDERED: CHONDR SULF/HYALURONATE SYRINGE IO ONE (09:45)
[2017-08-27] MEDS ORDERED: EPINEPHrine 1 MG/ML AMP IVP ONE (09:45)
[2017-08-27] MEDS ORDERED: TIMOLOL 0.5% OPHTH DROPS OPTH ONE (09:46)
[2017-08-27] MEDS ORDERED: BSS/LIDOCAINE/EPINEPHRINE 1 ML SYRINGE IO ONE ×2 (09:46)
[2017-08-27] MEDS ORDERED: TRIAMCIN/MOXIFLOX/VANCO 1 ML VIAL IO ONE ×2 (09:47)
[2017-08-27] MEDS ORDERED: MIDAZOLAM 2 MG/2 ML VIAL IVP ONE (09:52)
[2017-08-27 10:02] VITALS: BP 154/56
--- NOTE | 2017-08-27 10:38 | OPERATIVE REPORT ---
DATE OF SERVICE: 08/27/2017 Physician: William Mccann MD DATE OF SURGERY: 08/27/2017 PREOPERATIVE DIAGNOSIS: Visually significant cataract, left eye. Cataract surgery was performed on the right eye on 08/13/2017. POSTOPERATIVE DIAGNOSIS: Visually significant cataract, left eye. Cataract surgery was performed on the right eye on 08/13/2017. NAME OF PROCEDURE: Phacoemulsification with posterior chamber intraocular lens implant, left eye. SURGEON: William Mccann MD ANESTHESIA: Monitored anesthesia care. COMPLICATIONS: None. OPERATIVE INDICATIONS: This is a 62-year-old woman with progressive vision loss in the left eye due to 3+ nuclear sclerotic and 1+ cortical cataract. Best corrected visual acuity was 20/25 with glare to 20/40 in the left eye. INDICATIONS FOR SURGERY: Overall decrease in vision, difficulty seeing street signs, difficulty driving in low light or at night, difficulty driving at night because of the headlights from other vehicles, and difficulty with glare or bright lights in any situation. She was consented at length concerning the risks and benefits of cataract surgery. Afterward, she expressed a desire to proceed with surgery. OPERATIVE PROCEDURE: The patient was taken into OR #3 and placed under monitored anesthesia care. A surgical timeout was conducted confirming the correct patient, correct procedure, and correct surgical site. She was given topical anesthesia, and then prepped and draped in the usual sterile fashion. The eye was entered at the 6 and 3 o'clock positions. Intracameral Shugarcaine was injected into the anterior chamber, followed by Viscoat. A continuous-tear curvilinear capsulorrhexis was performed. The nucleus was hydrodissected and phacoemulsified. The cortex was evacuated using automated infusion and aspiration. Provisc was injected in the capsular bag, and a 20.5 diopter intraocular lens was inserted in the bag. Approximately 0.8 mL of a mixture of triamcinolone, moxifloxacin and vancomycin was injected subconjunctivally in the superior quadrant for infection and inflammation prophylaxis. I and A was used to evacuate the viscoelastic materials. The eye was inflated to physiologic pressure using a balanced salt solution and found to be watertight. The patient was taken from the operating room in good condition and given postoperative instructions. TD: 08/27/2017 10:36
[2017-08-27] MEDS ORDERED: TIMOLOL 0.5% OPHTH DROPS ONE (12:47)
[2017-08-27] MEDS ORDERED: BRIMONIDINE 0.2% OPHTH DROPS 5 ML ONE (12:47)
== END 2017-08-27 08:12 | disposition home or self-care (01) ==
LOC: SDS 08:11
PROVIDERS: ATTEND Ophthalmology
PROC: 08RK3JZ Replacement of Left Lens with Synthetic Substitute, Percutaneous Approach (ICD-10-PCS; principal; 2017-08-27 09:30)
DX: H25.812 Combined forms of age-related cataract, left eye (principal); J44.9 Chronic obstructive pulmonary disease, unspecified; I10 Essential (primary) hypertension; E66.01 Morbid (severe) obesity due to excess calories; Z68.43 Body mass index [BMI] 50.0-59.9, adult; E78.5 Hyperlipidemia, unspecified; Z87.891 Personal history of nicotine dependence; E11.43 Type 2 diabetes mellitus with diabetic autonomic (poly)neuropathy; K31.84 Gastroparesis
CPT/HCPCS: 66984; A9270; J3490; V2632

== ENCOUNTER 2017-09-25 01:15 | Emergency (ER) | payer MEDICARE ==
--- NOTE | 2017-09-25 01:25 | ED Physician Documentation ---
PD HPI DYSPNEA - Stated complaint Stated Complaint: DIFF BREATHING - History obtained from History obtained from: Patient, Family - History of Present Illness Timing - onset: How many weeks ago (2) Timing - details: Gradual onset, Still present Inciting event(s): URI Improved by: O2 Worsened by: Exertion, Laying flat, Coughing Associated symptoms: Cough, Wheezing. No: Fever, Chest pain / discomfort, Palpitations Similar symptoms before: Work up / diagnostics Recently seen: Not recently seen - Additional information Additional information: patient is a 62 year old female with a history of copd who is presenting to the emergency department for cough and dyspnea with exertion. According to patient and family it has been going on for the last couple of weeks and the symptoms have been getting progressively worse. Patient states that she has been using her inhaler more frequently. Patient also states that the symptoms are worse when she lies down flat. Review of Systems Constitutional: denies: Fever, Chills Nose: denies: Rhinorrhea / runny nose, Congestion Throat: denies: Dental pain / toothache Cardiac: denies: Chest pain / pressure Respiratory: reports: Dyspnea, Cough, Wheezing GI: denies: Nausea, Vomiting : reports: Reviewed and negative Skin: reports: Reviewed and negative Musculoskeletal: denies: Neck pain, Back pain, Extremity pain Neurologic: denies: Generalized weakness, Focal weakness, Numbness Immunocompromised: denies: Immunocompromised PD PAST MEDICAL HISTORY - Past Medical History Cardiovascular: Hypertension, High cholesterol Respiratory: COPD Neuro: None Endocrine/Autoimmune: Type 2 diabetes GI: Other 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: 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 : None HEENT: None Psych: None Musculoskeletal: Osteoarthritis Derm: None - Past Surgical History Past Surgical History: Yes /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: Hysterectomy HEENT: Cataracts, Other - Present Medications Home Medications: Ambulatory Orders Medication Instructions Recorded Confirmed Allopurinol [Zyloprim] 300 mg ORAL DAILY 11/13/16 11/14/16 Furosemide 80 mg ORAL Q2D 11/13/16 11/14/16 Hydrocodone/Acetaminophen [[place] 1 tab ORAL TID PRN 11/13/16 11/14/16 5-325 Tablet] Insulin Glargine,Hum.rec.anlog 40 unit SQ BID 11/13/16 08/27/17 [Lantus Solostar] Lisinopril [Zestril] 40 mg ORAL DAILY 11/13/16 08/27/17 Omeprazole 40 mg ORAL DAILY 11/13/16 08/27/17 Simvastatin 20 mg ORAL QPM 11/13/16 08/27/17 amLODIPine [Norvasc] 10 mg ORAL DAILY 11/13/16 08/27/17 metFORMIN [Glucophage] 500 mg ORAL BIDWM 11/13/16 08/27/17 Albuterol Sulf [Ventolin Hfa 2 puffs INH Q4H PRN 11/14/16 11/14/16 Inhaler] DULoxetine [Cymbalta] 60 mg PO DAILY 11/14/16 08/27/17 Insulin Aspart [Novolog Flexpen] 25 units SUBQ TIDWM 11/14/16 08/27/17 Pioglitazone HCl [Actos] 30 mg PO DAILY 11/14/16 08/27/17 Furosemide 80 mg PO DAILY #1 tablet 11/16/16 08/27/17 Nystatin 1 each TOP TID #1 powder.ea. 11/17/16 08/27/17 Azithromycin [Zithromax] 250 mg PO DAILY #4 tablet 09/25/17 - Allergies Allergies/Adverse Reactions: Allergies Allergy/AdvReac Type Severity Reaction Status Date / Time No Known Drug Allergies Allergy Verified 09/25/17 01:27 - Social History Does the pt smoke?: Yes Smoking Status: Never smoker Does the pt drink ETOH?: No Does the pt have substance abuse?: No - Immunizations Immunizations are current?: Yes - POLST Patient has POLST: No POLST Status: Full Code PD ED PE NORMAL - Vitals Vital signs reviewed: Yes - General General: Alert and oriented X 3, No acute distress - HEENT HEENT: Atraumatic, Moist mucous membranes - Neck Neck: Supple, no meningeal sign - Cardiac Cardiac: No murmur - Abdomen Abdomen: Soft - Derm Derm: Normal color, Warm and dry, No rash - Extremities Extremities: No deformity, No calf tenderness / cord - Neuro Neuro: Alert and oriented X 3, No motor deficit, No sensory deficit, Normal speech Eye Opening: Spontaneous Motor: Obeys Commands Verbal: Oriented GCS Score: 15 - Psych Psych: Normal mood PD ED PE EXPANDED - Cardiac Cardiac: Tachy - Respiratory Respiratory: Wheezing, Rhonchi, Right upper lobe, Right middle lobe, Left upper lobe, Left lower lobe. No: Distress Results - Vitals Vitals: Vital Signs - 24 hr 09/25/17 09/25/17 01:21 02:42 Temperature 37.3 C Heart Rate 117 H 101 H Respiratory 16 16 Rate Blood Pressure 139/59 H O2 Saturation 93 Oxygen O2 Source Room air - EKG (time done) 0123 Rate: Rate (enter#) (1) Rhythm: Sinus tachycardia [place]: Normal Intervals: Normal FL QRS: Normal Compare to prior EKG: Unchanged from prior EKG - Labs Labs: Laboratory Tests 09/25/17 09/25/17 09/25/17 01:25 01:44 01:44 WBC 10.4 RBC 3.69 L Hgb 10.8 L Hct 32.3 L MCV 87.4 MCH 29.2 MCHC 33.4 RDW 14.4 Plt Count 385 MPV 7.1 L Neut # 7.9 H Lymph # 1.1 L Antelope # 1.1 H Eos # 0.2 Baso # 0.1 Absolute Nucleated RBC 0.01 Nucleated RBC % 0.0 D-Dimer Sodium 134 L Potassium 3.9 Chloride 97 L Carbon Dioxide 26 Anion Gap 11.0 BUN 26 H Creatinine 1.5 H Estimated GFR (MDRD) 35 L Glucose 239 H Calcium 8.7 Total Bilirubin 0.5 AST 21 ALT 12 Alkaline Phosphatase 81 Troponin I < 0.04 B-Natriuretic Peptide Total Protein 7.2 Albumin 3.3 Globulin 3.9 Albumin/Globulin Ratio 0.8 L Lipase 14 L 09/25/17 09/25/17 01:44 01:44 WBC RBC Hgb Hct MCV MCH MCHC RDW Plt Count MPV Neut # Lymph # [place]elope # Eos # Baso # Absolute Nucleated RBC Nucleated RBC % D-Dimer 225.0 Sodium Potassium Chloride Carbon Dioxide Anion Gap BUN Creatinine Estimated GFR (MDRD) Glucose Calcium Total Bilirubin AST ALT Alkaline Phosphatase Troponin I B-Natriuretic Peptide 50 Total Protein Albumin Globulin Albumin/Globulin Ratio Lipase - Rads (name of study) chest x Radiology: Final report received (patchy infiltrates) PD MEDICAL DECISION MAKING - ED course Complexity details: reviewed old records, reviewed results, re-evaluated patient , considered differential, d/w patient, d/w family ED course: Patient was seen and examined at bedside. patient was treated with duonebs, solumedrol and imaging was ordered. patient improved with the breathing treatments. When patient returned from imaging the results were reviewed and were consistent with atypical pneumonia. patient was able to tolerate PO without difficulty and was appropriate for outpatient antibiotics. Departure - Departure Disposition: 01 Home, Self Care Clinical Impression: CAP (community acquired pneumonia) Condition: Good Instructions: Pneumonia Dc Follow-Up: Keaton Morales MD [Primary Care Provider] - Within 3 Days Prescriptions: Azithromycin [Zithromax] 250 mg PO DAILY #4 tablet Comments: Your symptoms today are being caused by pneumonia. You had your first dose of antibiotics tonight and you will need to be on them for the next 4 days. you should continue with your breathing treatments and you can increase the frequency of albuterol as needed in the acute stage. You should follow up with your doctor if your symptoms don't improve over the next few days. you may return to the emergency department at any time for new, worsening or uncontrollable symptoms.
[2017-09-25 01:51] LABS: BASOPHILS # (AUTO) 0.1 10^3/uL (0.0-0.1); BASOPHILS % (AUTO) 0.9 %; EOSINOPHILS # (AUTO) 0.2 10^3/uL (0.0-0.7); HGB - HEMOGLOBIN 10.8 g/dL (12.0-16.0); LYMPHOCYTES # (AUTO) 1.1 10^3/uL (1.5-3.5); LYMPHOCYTES % (AUTO) 10.8 %; MEAN CORPUSCULAR HEMOGLOBIN 29.2 pg (27.0-31.0); MEAN CORPUSCULAR HGB CONC 33.4 g/dL (32.0-36.0); MEAN CORPUSCULAR VOLUME 87.4 fL (81.0-99.0); MEAN PLATELET VOLUME 7.1 fL (7.9-10.8); MONOCYTES # (AUTO) 1.1 10^3/uL (0.0-1.0); MONOCYTES % (AUTO) 10.4 %; NEUTROPHILS # (AUTO) 7.9 10^3/uL (1.5-6.6); NEUTROPHILS % (AUTO) 75.9 %; PLT - PLATELET COUNT 385 10^3/uL (130-450); RED BLOOD COUNT 3.69 10^6/uL (4.20-5.40); RED CELL DISTRIBUTION WIDTH 14.4 % (12.0-15.0); WHITE BLOOD COUNT 10.4 x10^3/uL (4.8-10.8)
[2017-09-25 02:03] LABS: ALBUMIN 3.3 g/dL (3.2-5.5); ALBUMIN/GLOBULIN RATIO 0.8 (1.0-2.2); BILIRUBIN,TOTAL 0.5 mg/dL (0.2-1.0); CALCIUM 8.7 mg/dL (8.5-10.3); CREATININE 1.5 mg/dL (0.4-1.0); TOTAL PROTEIN 7.2 g/dL (6.7-8.2)
[2017-09-25] MEDS ORDERED: methylPREDNISolone SUCCINATE 125 MG/2 ML VIAL IVP STA (02:10)
[2017-09-25] MEDS ORDERED: IPRATROPIUM/ALBUTEROL 3 ML NEB INH STA (02:10)
--- NOTE | 2017-09-25 02:50 | XRAY Preliminary Report ---
Exam: XR CHEST 2 VIEW X-RAY IMPRESSION: Subtle hazy peribronchial opacity within the right upper lobe and right middle lobe, worr isome for infection, possibly atypical pneumonia. [facility] SITE ID: [id number]
--- NOTE | 2017-09-25 02:59 | XRAY Report ---
EXAM: CHEST RADIOGRAPHY EXAM DATE: 09/25/2017 02:24 AM. CLINICAL HISTORY: Shortness of breath. COMPARISON: 01/29/2007. TECHNIQUE: 2 views. FINDINGS: Lungs/Pleura: Small hazy right middle lobe opacity. Previously noted left lung airspace disease has c leared. Subtle hazy peribronchial opacity seen within the right upper lobe. No definite effusion or p neumothorax. Mediastinum: Heart and mediastinal contours are unremarkable. Other: Thoracic spine findings suggestive of DISH. IMPRESSION: Subtle hazy peribronchial opacity within the right upper lobe and right middle lobe, worr isome for infection, possibly atypical pneumonia. [facility] Referring Provider Line: [phone] SITE ID: [id number]
[2017-09-25] MEDS ORDERED: AZITHROMYCIN 250 MG TABLET PO STA (03:03)
[2017-09-25 03:42] VITALS: BP 115/60
== END 2017-09-25 03:42 | disposition home or self-care (01) ==
LOC: ED 01:15
DX: J18.9 Pneumonia, unspecified organism (principal); J44.9 Chronic obstructive pulmonary disease, unspecified; I10 Essential (primary) hypertension; E78.00 Pure hypercholesterolemia, unspecified; E11.9 Type 2 diabetes mellitus without complications; Z79.4 Long term (current) use of insulin; M19.90 Unspecified osteoarthritis, unspecified site; Z85.43 Personal history of malignant neoplasm of ovary
CPT/HCPCS: 71046; 80053; 83690; 83880; 84484; 85025; 85379; 93005; 94640; 96374; 99283; 99284; A9270; 36415